=== PATIENT | male | born 1950 | race Caucasian/White ===

== ENCOUNTER → 2017-05-13 | Outpatient (CLI) | payer OTHER | LOC: BMCIMAGING 11:57 | PROVIDERS: ATTEND Physician Assistant Medical | DX: I77.9 Disorder of arteries and arterioles, unspecified (principal); I25.10 Atherosclerotic heart disease of native coronary artery without angina pectoris; E78.5 Hyperlipidemia, unspecified ==

== ENCOUNTER → 2017-06-17 | Outpatient (CLI) | payer OTHER | LOC: FIMAGING 09:28 | PROVIDERS: ATTEND Internal Medicine | DX: R05 Cough (principal); Z77.090 Contact with and (suspected) exposure to asbestos; I25.10 Atherosclerotic heart disease of native coronary artery without angina pectoris; Z95.5 Presence of coronary angioplasty implant and graft ==

== ENCOUNTER → 2017-08-05 | Day surgery (SDC) | payer OTHER ==
--- NOTE | 2017-08-05 10:07 | GOP ---
[f rep st] OPERATIVE REPORT DATE OF OPERATION: 08/05/2017 SURGEON: Omar Santos MD PREOPERATIVE DIAGNOSIS: Rising prostate-specific antigen levels. POSTOPERATIVE DIAGNOSIS: Rising prostate-specific antigen levels. PROCEDURE PERFORMED: Transrectal ultrasound of the prostate with ultrasound-guided biopsies. FINDINGS: INDICATIONS: The patient is a 66-year-old male, who has had rising PSA levels greater than 0.75 ng/m L per year. His most recent level was 2.50 ng/mL. After discussing options, he elected to undergo u ltrasound-guided prostate biopsies. DESCRIPTION OF PROCEDURE: With the patient in the left lateral decubitus position, the transrectal u ltrasound probe was inserted. The prostate measured approximately 21 cc. 1% lidocaine was used to a nesthetize the periprostatic tissue. A biopsy gun was used to obtain 12 sextant biopsies of the righ t and left base, mid, and apical tissue. He tolerated the procedure well. There were no complicatio ns. /[id number]/MODL
== END | disposition home or self-care (01) ==
LOC: BMCIMAGING 08:12
PROVIDERS: ATTEND Urology
PROC: 0VB03ZX Excision of Prostate, Percutaneous Approach, Diagnostic (ICD-10-PCS; principal; 2017-08-05)
DX: R97.20 Elevated prostate specific antigen [PSA] (principal)

== ENCOUNTER → 2018-04-15 | Outpatient (CLI) | payer OTHER | LOC: BMCIMAGING 13:45 | PROVIDERS: ATTEND Emergency Medicine | DX: Z12.31 Encounter for screening mammogram for malignant neoplasm of breast (principal) ==

== ENCOUNTER → 2019-02-02 | Outpatient (CLI) | payer OTHER | LOC: FIMAGING 10:41 | PROVIDERS: ATTEND Orthopaedic Surgery | DX: M75.112 Incomplete rotator cuff tear or rupture of left shoulder, not specified as traumatic (principal); M75.82 Other shoulder lesions, left shoulder ==

== ENCOUNTER 2019-04-03 10:03 | Emergency (ER) | payer OTHER ==
[2019-04-03 10:10] VITALS: BP 140/62
--- NOTE | 2019-04-03 10:13 | EDPHY ---
H & P Stated Complaint: back pain Source: Patient, Family () Exam Limitations: No limitations - Personal History Current Tetanus/Diphtheria Vaccine: Yes Current Tetanus Diphtheria and Acellular Pertussis (TDAP): Yes - Medical/Surgical History Hx Asthma: No Hx Chronic Respiratory Disease: No Hx Diabetes: No Hx Cardiac Disease: Yes Hx Renal Disease: No Hx Cirrhosis: No Hx Alcoholism: No Hx HIV/AIDS: No Hx Splenectomy or Spleen Trauma: No Other PMH: MIx3, stentsx2, HTN, CHF, PAWAN. Choley, sleep apnea requiring Vpap at night - Social History Smoking Status: Never smoked Time Seen by Provider: 04/03/19 10:12 HPI/ROS: HPI: This is a 68-year-old male who presents with Chief Complaint: Back pain Location: Lumbar midline back Quality: Pain Duration: 1-2 weeks Signs and Symptoms: No bleeding, no radiation, no numbness, no weakness, no tingling, no incontinence, + decreased range of motion, no swelling, + pain, no fever Timing: Acute Severity: Moderate Context: Presents with 1-2 week history of midline lumbar back pain that is nonradiating in nature. He denies any actual injury, heavy lifting, trauma. He reports that he woke up this morning and felt increased pain from the last 1- 2 weeks in his lumbar back. He took Tylenol and Advil prior to arrival. He has Anvik at home but does not like to use it during the day and will use it at night. He has a history of multilevel spondylosis with multi disc space loss identified in the thoracic spine per MRI in 2010. Patient denies any change in bowel or bladder habits. He is able to walk without any difficulty. He reports that he feels "stiff and achy." Denies radiation, paresthesias, weakness, urinary symptoms, fever. Patient reports that he has an appointment on Tuesday [facility] for further evaluation. Pain worsens with flexion and lateral rotation. Modifying Factors: Advil and Tylenol with minimal relief Comment: ROS: A comprehensive 10 system review of systems is otherwise negative aside from elements mentioned in the history of present illness. MEDICAL/SURGICAL/SOCIAL HISTORY: Medical/Surgical history: MIx3, stentsx2, HTN, CHF, PAWAN, cholecystectomy, sleep apnea requiring CPAP at night Social history: Nonsmoker. Employed at [employer] . CONSTITUTIONAL: Polite and cooperative elderly white male, at bedside, awake and alert, no obvious distress HEENT: Atraumatic and normocephalic. NECK: supple, no midline tenderness, flexion 45 degrees, extension 45 degrees, right and left lateral flexion 45 degrees. No meningismus. Cardiovascular: Normal S1/S2, regular rate, regular rhythm, without murmur rub or gallop. PULMONARY/CHEST: Symmetrical and nontender. Clear to auscultation bilaterally. Good air movement. No accessory muscle usage. ABDOMEN: Soft, nondistended, nontender. BACK: Moderate multilevel lumbar reproducible midline tenderness, no paraspinous spasm, deep tendon reflexes 2/2, no pain with straight leg raise, No foot drop. Achilles reflexes are equal bilaterally. Able to walk without difficulty. Good range of motion of flexion, extension, bilateral rotation. EXTREMITIES: 2/2 pulses, strength 5/5, DIP/PIP/MCP flexion/extension intact with good light touch sensation. no deformities, no clubbing, no cyanosis, no edema. NEUROLOGICAL: no focal neuro deficits. GCS 15. Light touch sensation intact. SKIN: Warm and dry, no erythema. no rash. Good capillary refill. (Maria Eugenia Stevenson) Constitutional: Initial Vital Signs Temperature (C) 36.5 C 04/03/19 10:07 Heart Rate 54 L 04/03/19 10:07 Respiratory Rate 16 04/03/19 10:07 Blood Pressure 140/62 H 04/03/19 10:07 O2 Sat (%) 92 04/03/19 10:07 O2 Delivery Mode Room Air Allergies/Adverse Reactions: Cheese Allergy (Severe, Verified 12/01/15 10:38) Vomiting Home Medications: Medication Instructions Recorded Atorvastatin Calcium [Lipitor 40 40 mg PO HS 06/03/15 mg (*)] Clopidogrel Bisulfate [Plavix (*)] 75 mg PO DAILY 06/03/15 Ferrous Sulfate [Ferrous Sulf 325 325 mg PO HS 06/03/15 MG (*)] Finasteride [Proscar 5 MG (*)] 5 mg PO DAILY 06/03/15 Gabapentin [Neurontin 300 MG (*)] 1,200 mg PO HS 06/03/15 Gabapentin [Neurontin 300 MG (*)] 600 mg PO DAILY@1500 06/03/15 Herbals/Supplements -Info Only 1 ea PO DAILY 06/03/15 Hydrochlorothiazide [HCTZ (*)] 25 mg PO DAILY 06/03/15 Metoprolol Succinate Xr [Toprol Xl 25 mg PO BID 06/03/15 25 mg (*)] Pantoprazole Sodium [Protonix 40mg 40 mg PO BID 06/03/15 (*)] Ranitidine HCl [Zantac] 300 mg PO HS 06/03/15 Ranolazine [Ranexa] 500 mg PO BID 06/03/15 Tamsulosin HCl [Flomax 0.4 MG (*)] 0.4 mg PO BID 06/03/15 celeCOXIB [Celebrex (*)] 200 mg PO DAILY 06/03/15 traZODone [traZODONE 50MG (*)] 50 mg PO HS 06/03/15 amLODIPine BESYLATE [Norvasc 5 mg 5 mg PO DAILY 09/14/15 (*)] oxyCODONE CR [Oxycontin] 20 mg PO BID 09/14/15 oxyCODONE IR [Oxycodone Ir (*)] 5 mg PO 5XD 09/14/15 methylPREDNISolone [Medrol Dose 1 each PO AD #1 ea 04/03/19 Joshua] Medical Decision Making ED Course/Re-evaluation: No neurological deficits to warrant emergent MRI in the ER Decision made to obtain lumbosacral x-ray Given Lidoderm patch, gabapentin, Flexeril Reviewed lumbar exercises at bedside with patient and . Multilevel degenerative disc disease and stenosis seen. Reassessed patient who reports moderate relief of symptoms. Given prescription for Medrol Dosepak. Patient advised that he takes gabapentin at night already for restless leg syndrome. He has a prescription for Anvik at home already. Ambulatory at discharge without any deficits. Work note provided. Patient has appointment on Tuesday with [facility]. No signs of neurovascular compromise/tenting of skin/compartment syndrome/ extremities and joints examined above and below area of concern and are neurovascularly intact/cauda equine syndrome/saddle anesthesia. This patient was seen under the supervision of my secondary supervising physician. I evaluated and cared for this patient independently. (Maria Eugenia Stevenson) I did not see this patient while he was in the emergency department. However his care was discussed with the PA while the patient was in the department. I agree with treatment plan and management (Cristóbal Rae) Differential Diagnosis: Back pain including but not limited to muscular pain, herniated disc, spine fracture, intra-abdominal causes and urinary tract infection. (Maria Eugenia Stevenson) - Data Points Medications Given: Discontinued Medications Cyclobenzaprine HCl (Flexeril) 10 mg PO EDNOW ONE Stop: 04/03/19 10:20 Last Admin: 04/03/19 10:37 Dose: 10 mg Gabapentin (Neurontin) 600 mg PO EDNOW ONE Stop: 04/03/19 10:20 Last Admin: 04/03/19 10:37 Dose: 600 mg Miscellaneous Information (Patch Removal) 1 ea TD DAILY21 CORNELIUS Stop: 09/30/19 20:59 Last Admin: 04/03/19 10:43 Dose: Not Given Miscellaneous Medication (Icy Hot Lidocaine/Menthol 4%/1% Patch) 1 patch TD EDNOW ONE Stop: 04/03/19 10:20 Last Admin: 04/03/19 10:38 Dose: 1 patch Departure - Departure Disposition: Home, Routine, Self-Care Clinical Impression: Lumbar degenerative disc disease, Low back pain Condition: Good Instructions: Low Back Strain (ED), Degenerative Disc Disease (ED), Lower Back Exercises (ED) Additional Instructions: Take Medrol Dosepak as directed. Take Tylenol 650 mg every 4 hours and/or Ibuprofen 600 mg every 8 hours with food as needed for pain. Use Anvik every 6 hours as needed for severe/break through pain. Do not use Tylenol and Anvik concomitantly. Rest today and perform gentle stretching exercises. Keep follow-up appointment with lilian Gordillo on Tuesday. Referrals: Enriqueta Pepe MD [Primary Care Provider] - As per Instructions [facility] [Provider Group] - 04/06/19 Stand Alone Forms: Work Excuse Prescriptions: methylPREDNISolone [Medrol Dose Joshua] 1 each PO AD #1 ea
[2019-04-03] MEDS ORDERED: CYCLOBENZAPRINE 10 MG TAB PO ONE (10:19)
[2019-04-03] MEDS ORDERED: GABAPENTIN 300 MG CAP PO ONE (10:19)
[2019-04-03] MEDS ORDERED: LIDOCAINE 4%/MENTHOL 1% PATCH TD ONE (10:19)
[2019-04-03] MEDS ORDERED: GABAPENTIN 300 MG CAP ONE (10:39)
[2019-04-03] MEDS ORDERED: PATCH REMOVAL 1 EA PATCH TD SCH (21:00)
== END 2019-04-03 11:04 | disposition home or self-care (01) ==
DX: M51.36 Other intervertebral disc degeneration, lumbar region (principal)

== ENCOUNTER → 2019-04-08 | Outpatient (CLI) | payer OTHER | LOC: FIMAGING 07:38 | PROVIDERS: ATTEND Physician Assistant | DX: M51.36 Other intervertebral disc degeneration, lumbar region (principal); M46.96 Unspecified inflammatory spondylopathy, lumbar region; M51.37 Other intervertebral disc degeneration, lumbosacral region; M41.86 Other forms of scoliosis, lumbar region ==